=== PATIENT | male | born 1990 | race Caucasian/White ===

== ENCOUNTER 2016-11-14 14:44 | Emergency (ER) | payer BC ==
[~2016-11-14] VITALS: Ht 188 cm; Wt 68.9 kg
[2016-11-14 14:47] VITALS: TEMP 36.5; Ht 188 cm; Wt 68.9 kg
[2016-11-14] MEDS ORDERED: GELATIN SPONGE 12-7MM EXT ONE (15:15)
--- NOTE | 2016-11-14 15:27 | EMERGENCY ROOM VISIT NOTE ---
ED Visit Note First contact with patient: 14:56 CHIEF COMPLAINT: Finger laceration HISTORY OF PRESENT ILLNESS: This 25-year-old male patient presents to the emergency department approximately 30 minutes after cutting the left fifth finger while cleaning his gun. Patient states he pulled out the bolt of the gun , when it slipped, avulsing the anterior aspect of his left pinky finger. Patient states he cleaned the digit using peroxide and a washcloth, immediately sought care in the emergency department. The bleeding has stopped. Denies weakness or numbness of the finger. The patient has full range of motion of the fingers. The patient rates the pain as throbbing and 6/10. The patient denies any other injuries. The patient's tetanus shot is up to date. REVIEW OF SYSTEMS: A 6 system review of systems was completed with positives and pertinent negatives listed in the HPI. ALLERGIES: Morphine, pertussis MEDICATIONS: None PMH: None SOCIAL HISTORY: Patient lives locally with his girlfriend. 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 Patient denies tobacco or drug use currently. He did quit using chew tobacco 1 month ago, and states he does drink alcohol socially on occasion. PHYSICAL EXAM: Vital Signs: Reviewed Nurse's notes, vital signs stable. GENERAL : 25-year-old male, in no acute distress, well developed, well nourished. SKIN : There is a 0.5 cm avulsion on the distal anterior aspect of the left finger. The overlying skin is no longer present. There is no foreign material in the wound and it looks clean. There is minimal bleeding. No deep structures such as tendons, bones, or significant blood vessels are seen in the base of the wound. Extension and flexion of the finger is full and strong. Full range of motion of the wrist and other fingers. Capillary refill less than 2 seconds. Normal sensation to light and sharp touch. EMERGENCY DEPARTMENT COURSE: I examined the patient. The wound was copiously irrigated and cleansed utilizing sterile saline. Gelfoam was placed over the wound, and it was bandaged utilizing gauze and Coban. The patient was discharged home in good condition. DIAGNOSIS: Finger avulsion DIFFERENTIAL DIAGNOSIS: Laceration, de-gloving, cellulitis, and others were considered. DISCHARGE INSTRUCTIONS & TREATMENT: You have been treated in the Emergency Department today for your left 5th finger abrasion. Leave the GELFOAM and dressing in place for the next 48 hours. Keep the dressing clean and dry until time for removal. To remove the GELFOAM dressing, remove the overlying tape and then soak the wound in warm water until the piece of GELFOAM can be easily removed. Proper wound care is essential for adequate wound healing and infection prevention. You can shower and clean the wound with soap and water. Do not scour over the wound, pat dry with a towel. You can use an antibiotic ointment with a dressing/bandage over the wound after removal of gelfoam. After this time you may leave the wound dry and open to the air, however, you should keep it covered while working or shooting guns, or performing other activities which could cause further injury. Look for signs of infection of the wound including: increased pain, swelling, foul discharge, streaking, or increased temperature. If any of these are noticed you should return to the Emergency Department for further assessment and treatment. As with any laceration you may have received nerve damage to the surrounding tissues. This damage could be permanent. For pain control, you can use the following wdqv-wev-msshweu medicines (if >12 yo): - Regular strength (325mg/tab) Tylenol (acetaminophen) 2 tabs every 4-6 hours as needed. Do not exceed 12 tablets in a 24 hour period. Avoid taking more than 4 grams (4000 mg) of Tylenol per day. This includes any other sources of acetaminophen you may take on a regular basis. - Regular strength (200 mg/tab) Advil (ibuprofen) 1-2 tabs every 4-6 hours as needed. Do not exceed a dose of 3200 mg per day. Return to the emergency department if your symptoms worsen despite treatment course outlined above. Follow-up with her primary care provider in 2-3 days for recheck. Current/Historical Medications No Active Prescriptions or Reported Meds Allergies Coded Allergies: Dextromethorphan (Unverified Allergy, Unknown, UNKNOWN, 11/14/16) ALLERGY PASSED ON FROM [facility] Ethanol (Unverified Allergy, Unknown, UNKNOWN, 11/14/16) ALLERGY PASSED ON FROM [facility] Guaifenesin (Unverified Allergy, Unknown, UNKNOWN, 11/14/16) ALLERGY PASSED ON FROM [facility] Morphine (Unverified Allergy, Unknown, hives, 11/14/16) Vital Signs Date Time Temp Pulse Resp B/P (MAP) Pulse Ox O2 Delivery O2 Flow Rate FiO2 11/14/16 15:35 58 18 107/65 98 11/14/16 14:47 36.5 68 17 120/84 98 Room Air Departure Information Impression Primary Impression: Avulsion of skin of finger without complication Dispostion Home / Self-Care Condition GOOD Prescriptions No Active Prescriptions or Reported Meds Referrals No Doctor, Assigned (PCP) Patient Instructions ED Gelfoam Dressing, [facility] Additional Instructions You have been treated in the Emergency Department today for your left 5th finger abrasion. Leave the GELFOAM and dressing in place for the next 48 hours. Keep the dressing clean and dry until time for removal. To remove the GELFOAM dressing, remove the overlying tape and then soak the wound in warm water until the piece of GELFOAM can be easily removed. Proper wound care is essential for adequate wound healing and infection prevention. You can shower and clean the wound with soap and water. Do not scour over the wound, pat dry with a towel. You can use an antibiotic ointment with a dressing/bandage over the wound after removal of gelfoam. After this time you may leave the wound dry and open to the air, however, you should keep it covered while working or shooting guns, or performing other activities which could cause further injury. Look for signs of infection of the wound including: increased pain, swelling, foul discharge, streaking, or increased temperature. If any of these are noticed you should return to the Emergency Department for further assessment and treatment. As with any laceration you may have received nerve damage to the surrounding tissues. This damage could be permanent. For pain control, you can use the following hggb-zie-vmlnkny medicines (if >12 yo): - Regular strength (325mg/tab) Tylenol (acetaminophen) 2 tabs every 4-6 hours as needed. Do not exceed 12 tablets in a 24 hour period. Avoid taking more than 4 grams (4000 mg) of Tylenol per day. This includes any other sources of acetaminophen you may take on a regular basis. - Regular strength (200 mg/tab) Advil (ibuprofen) 1-2 tabs every 4-6 hours as needed. Do not exceed a dose of 3200 mg per day. Return to the emergency department if your symptoms worsen despite treatment course outlined above. Follow-up with her primary care provider in 2-3 days for recheck. Problem Qualifiers Primary Impression: Avulsion of skin of finger without complication Encounter type: initial encounter Qualified Codes: S61.209A - Unspecified open wound of unspecified finger without damage to nail, initial encounter
[2016-11-14 15:35] VITALS: BP 107/65; PULSE 58; O2SAT 98
== END 2016-11-14 15:36 | disposition home or self-care (01) ==
LOC: C.EDB 14:45 → C.EDD 15:36
DX: S61.217A Laceration without foreign body of left little finger without damage to nail, initial encounter (principal); W45.8XXA Other foreign body or object entering through skin, initial encounter; Y92.019 Unspecified place in single-family (private) house as the place of occurrence of the external cause; Y93.89 Activity, other specified

== ENCOUNTER 2017-01-03 23:19 | Emergency (ER) | payer BC ==
[~2017-01-03] VITALS: Ht 188 cm; Wt 67.3 kg
[2017-01-03 23:19] VITALS: TEMP 36.5; Ht 188 cm; Wt 67.3 kg
[2017-01-03] MEDS ORDERED: SODIUM CHLORIDE 0.9% 1000ML 2,000 ML IV STA (23:36)
[2017-01-03] MEDS ORDERED: ONDANSETRON INJ 2 MG/ML 2 ML VIAL IV STA (23:36)
[2017-01-03] MEDS ORDERED: KETOROLAC TROMETHAMINE 30 MG/ML VIAL IV STA (23:36)
[2017-01-03 23:46] LABS: BASO % 0.1 %; BASO ABS # 0.01 K/uL (0-0.2); COMPLETE YES; EOS % 0.1 %; HEMATOCRIT 48.4 % (42-52); IG% 0.4 %; LYMPH % 12.2 %; LYMPH ABS # 1.36 K/uL (1.2-3.4); MEAN CELL VOLUME 80.4 fL (80-100); MEAN CORPUSCULAR HEMOGLOBIN 30.1 pg (25-34); MEAN CORPUSCULAR HGB CONC 37.4 g/dl (32-36); MEAN PLATELET VOLUME 10.1 fL (7.4-10.4); MONO % 4.1 %; NEUT % 83.1 %; PLATELET COUNT 249 K/uL (130-400); RED BLOOD COUNT 6.02 M/uL (4.7-6.1); WHITE BLOOD COUNT 11.19 K/uL (4.8-10.8)
--- NOTE | 2017-01-03 23:47 | EMERGENCY ROOM VISIT NOTE ---
History Report prepared by Dunai: Jagdish Núñez Under the Supervision of: Dr. Pavithra Pelayo M.D. First contact with patient: 23:21 Chief Complaint: VOMITING Stated Complaint: nausea History of Present Illness The patient is a 26 year old male who presents to the Emergency Room with complaints of intermittent vomiting starting around 1100 this morning. The patient states that he was drinking alcohol last night, and he had six beers which is more than usual. He states that when he woke up this morning he threw up, and he states that he has not been able to keep any fluids or food down and states he has vomited 10 times. The patient states that he has not had any hematuria, diarrhea, chest pain, or shortness of breath. He states that his urine has been very dark, and he had a normal bowel movement. He states that he does not have any other medical problems. He additionally states that he has been having tingling in his hands, face, and feet. Source of History: patient Onset: 1100 Position: other (global) Quality: other (vomiting) Timing: intermittent Associated Symptoms: No chest pain, No SOB, No diarrhea, No urinary symptoms Note: Associated symptoms: Tingling in hands, face, and feet. Review of Systems See HPI for pertinent positives & negatives. A total of 10 systems reviewed and were otherwise negative. Past Medical & Surgical Surgical Problems: (1) History of tonsillectomy Family History Hypertension Social History Smoking Status: Never Smoker Alcohol Use: occasionally Marital Status: single Housing Status: lives alone Occupation Status: employed Current/Historical Medications Scheduled PRN Ibuprofen Tab (Advil), 200-600 MG PO Q4H PRN for Pain Allergies Coded Allergies: Dextromethorphan (Verified Allergy, Unknown, BROTHER HAD ANAPHYLAXIS REACTION, 01/03/17) Ethanol (Verified Allergy, Unknown, BROTHER HAD ANAPHYLAXIS REACTION, 01/03) Guaifenesin (Verified Allergy, Unknown, BROTHER HAD ANAPHYLAXIS REACTION, 01/03/17) Morphine (Verified Allergy, Unknown, hives, 01/03/17) Physical Exam Vital Signs Date Time Temp Pulse Resp B/P (MAP) Pulse Ox O2 Delivery O2 Flow Rate FiO2 01/04/17 03:20 75 14 127/76 98 01/04/17 02:15 105/70 01/04/17 01:06 76 14 95 01/04/17 01:01 116/60 01/04/17 00:49 61 13 100 01/04/17 00:46 118/77 01/04/17 00:44 111/65 01/04/17 00:44 72 18 111/65 95 Room Air 01/04/17 00:19 60 99 01/04/17 00:15 66 01/03/17 23:22 134/85 01/03/17 23:19 36.5 83 20 134/85 100 Room Air Physical Exam Vital signs reviewed. General: Well-appearing male, in no significant distress. HEENT: No scleral icterus, PERRLA, neck supple. Atraumatic. Cardiovascular: Regular rate and rhythm, no extra sounds. Pulmonary: Clear to auscultation bilaterally, normal work of breathing. Abdomen: Soft, nontender, nondistended, positive bowel sounds. Musculoskeletal: Atraumatic, no peripheral edema. Neurologic: Patient awake alert and oriented x 3, full strength in all 4 extremities. Cranial nerves 2 through 12 grossly intact. Skin: Warm, dry, no rash Medical Decision & Procedures ER Provider Diagnostic Interpretation: Radiology results as stated below per my review and radiologist interpretation: US RUQ: Unremarkable study. Radiologist: Claudia King MD Laboratory Results 01/03/17 23:30 Red Blood Count 6.02, Mean Corpuscular Volume 80.4, Mean Corpuscular Hemoglobin 30.1, Mean Corpuscular Hemoglobin Concent 37.4, Mean Platelet Volume 10.1, Neutrophils (%) (Auto) 83.1, Lymphocytes (%) (Auto) 12.2, Monocytes (%) (Auto) 4.1, Eosinophils (%) (Auto) 0.1, Basophils (%) (Auto) 0.1, Neutrophils # (Auto) 9.30, Lymphocytes # (Auto) 1.36, Monocytes # (Auto) 0.46, Eosinophils # (Auto) 0.01, Basophils # (Auto) 0.01 01/03/17 23:30 Test 01/03/17 23:30 01/04/17 02:13 White Blood Count 11.19 K/uL (4.8-10.8) Red Blood Count 6.02 M/uL (4.7-6.1) Hemoglobin 18.1 g/dL (14.0-18.0) Hematocrit 48.4 % (42-52) Mean Corpuscular Volume 80.4 fL (80-100) Mean Corpuscular Hemoglobin 30.1 pg (25-34) Mean Corpuscular Hemoglobin Concent 37.4 g/dl (32-36) Platelet Count 249 K/uL (130-400) Mean Platelet Volume 10.1 fL (7.4-10.4) Neutrophils (%) (Auto) 83.1 % Lymphocytes (%) (Auto) 12.2 % Monocytes (%) (Auto) 4.1 % Eosinophils (%) (Auto) 0.1 % Basophils (%) (Auto) 0.1 % Neutrophils # (Auto) 9.30 K/uL (1.4-6.5) Lymphocytes # (Auto) 1.36 K/uL (1.2-3.4) Monocytes # (Auto) 0.46 K/uL (0.11-0.59) Eosinophils # (Auto) 0.01 K/uL (0-0.5) Basophils # (Auto) 0.01 K/uL (0-0.2) RDW Standard Deviation 34.7 fL (36.4-46.3) RDW Coefficient of Variation 12.0 % (11.5-14.5) Immature Granulocyte % (Auto) 0.4 % Immature Granulocyte # (Auto) 0.05 K/uL (0.00-0.02) Anion Gap 11.0 mmol/L (3-11) Est Creatinine Clear Calc Drug Dose 88.8 ml/min Estimated GFR () 96.1 Estimated GFR (Non- 83.0 BUN/Creatinine Ratio 9.9 (10-20) Calcium Level 10.1 mg/dl (8.5-10.1) Total Bilirubin 1.0 mg/dl (0.2-1) Direct Bilirubin 0.2 mg/dl (0-0.2) Aspartate Amino Transf (AST/SGOT) 76 U/L (15-37) Alanine Aminotransferase (ALT/SGPT) 212 U/L (12-78) Alkaline Phosphatase 73 U/L (45-117) Total Protein 8.4 gm/dl (6.4-8.2) Albumin 4.9 gm/dl (3.4-5.0) Lipase 102 U/L (73-393) Urine Color DK YELLOW Urine Appearance CLEAR (CLEAR) Urine pH >= 9.0 (4.5-7.5) Urine Specific [place] 1.027 (1.000-1.030) Urine Protein NEG (NEG) Urine Glucose (UA) NEG (NEG) Urine Ketones 1+ (NEG) Urine Occult Blood NEG (NEG) Urine Nitrite NEG (NEG) Urine Bilirubin NEG (NEG) Urine Urobilinogen NEG (NEG) Urine Leukocyte Esterase TRACE (NEG) Urine WBC (Auto) 1-5 /hpf (0-5) Urine RBC (Auto) 0-4 /hpf (0-4) Urine Hyaline Casts (Auto) 0 /lpf (0-5) Urine Epithelial Cells (Auto) >30 /lpf (0-5) Urine Bacteria (Auto) NEG (NEG) Urine Renal Epithelial Cells /lpf (0-5) Urine Mucus PRESENT (NONE PRSENT) Laboratory results per my review. Medications Administered Medications (Trade) Dose Ordered Sig/Amanda Route Start Time Stop Time Status Last Admin Dose Admin Sodium Chloride 2,000 ml @ 999 mls/hr Q2H1M STAT IV 01/03/17 23:36 01/04/17 01:36 DC 01/03/17 23:52 999 MLS/HR Ketorolac Tromethamine (Toradol Inj) 30 mg NOW STAT IV 01/03/17 23:36 01/03/17 23:38 DC 01/03/17 23:53 30 MG Ondansetron HCl (Zofran Inj) 4 mg NOW STAT IV 01/03/17 23:36 01/03/17 23:38 DC 01/03/17 23:53 4 MG Ondansetron HCl (ZOFRAN ODT 4MG Home Pack) 1 homepack UD ONCE PO 01/04/17 03:15 01/04/17 03:16 DC 01/04/17 03:18 1 HOMEPACK ED Course 2330: Past medical records reviewed. The patient was evaluated in room B4. A complete history and physical examination was performed. 2336: Zofran Inj 4mg IV, Toradol Inj 30mg IV, Sodium Chloride 2000 ml @ 999 mls/ hr IV 0228: I reevaluated the patient, and he states that he is feeling well. 0310: Upon reevaluation, the patient appeared to have improvement of his symptoms. I discussed findings with him. He verbalized agreement of the treatment plan. He was discharged home. 0315: Zofran ODT 4mg 1 Home Pack PO Medical Decision Differential diagnosis: Etiologies such as gastroenteritis, food borne illness, infections, appendicitis , diverticulitis, inflammatory bowel disease, obstruction, GI bleed, biliary pathology, as well as others were entertained. This patient was evaluated and appeared to be in no significant distress. IV access was obtained and laboratory work was drawn. The patient was placed on the clinical research monitor and found to be in a normal sinus rhythm. He was hydrated with normal saline solution, given IV Zofran and Toradol. Laboratory work reveals mildly elevated liver enzymes, likely consistent with his vomiting. Ultrasound of right upper quadrant was performed and is unremarkable. The patient was feeling much improved. He was no longer vomiting or nauseated. He was discharged with a Zofran home pack, asked to drink plenty clear fluids and to advance his diet slowly as tolerated. He'll follow-up with his physician for reevaluation this week if symptoms persist and return to the ER for worsening of symptoms or any medical concerns. Medication Reconcilliation Current Medication List: was personally reviewed by me Blood Pressure Screening Patient's blood pressure: Normal blood pressure Impression Primary Impression: Vomiting Additional Impression: Elevated liver enzymes Scribe Attestation The scribe's documentation has been prepared under my direction and personally reviewed by me in its entirety. I confirm that the note above accurately reflects all work, treatment, procedures, and medical decision making performed by me. Departure Information Dispostion Home / Self-Care Referrals No Doctor, Assigned (PCP) Forms HOME CARE DOCUMENTATION FORM, IMPORTANT VISIT INFORMATION Patient Instructions My [facility] Additional Instructions Diagnosis: Vomiting Drink plenty of clear fluids. Zofran 4 mg ODT every 6 hours as needed for nausea. Avoid alcohol in excess. Avoid aspirin, Aleve and ibuprofen. Use Pepcid 20 mg twice daily as needed for gastritis. Follow-up with your physician for reevaluation this week. Return to the ER for worsening of symptoms or any medical concerns. Problem Qualifiers
[2017-01-03] MEDS ORDERED: IBUP-103 PO (23:58)
[2017-01-04 00:24] LABS: BUN/CREATININE RATIO 9.9 (10-20); CALCIUM 10.1 mg/dl (8.5-10.1); CREATININE 1.2 mg/dl (0.60-1.40); POTASSIUM 4.1 mmol/L (3.5-5.1)
[2017-01-04 02:25] LABS: URINE APPEARANCE CLEAR (CLEAR); URINE BILIRUBIN NEG (NEG); URINE COLOR DK YELLOW; URINE EPITHELIAL CELL AUTO >30 /lpf (0-5); URINE NITRITE NEG (NEG); URINE PH >= 9.0 (4.5-7.5); URINE SPECIFIC GRAVITY 1.027 (1.000-1.030); UROBILINOGEN NEG (NEG); ZZUR CULT IF INDIC CLEAN CATCH NO
[2017-01-04 02:36] LABS: MANUAL MICROSCOPIC REQUIRED? NO; REVIEW REQ? YES; SULFASALICYLIC ACID NEG (NEG)
[2017-01-04 03:05] LABS: URINE MUCUS PRESENT (NONE PRSENT)
[2017-01-04] MEDS ORDERED: ONDANSETRON HOME PACK 4MG OD TAB PO ONE (03:15)
[2017-01-04 03:20] VITALS: BP 127/76; PULSE 75; O2SAT 98
--- NOTE | 2017-01-04 06:39 | DIAGNOSTIC IMAGING REPORT ---
GALLBLADDER-ABD LIMITED CLINICAL HISTORY: elevated liver enzymes nausea. Pain. TECHNIQUE: Ultrasound COMPARISON STUDY: None FINDINGS: Normal study IMPRESSION: Normal study The above report was generated using voice recognition software. It may contain grammatical, syntax or spelling errors. Electronically signed by: Rm Cotter M.D. 01/04/2017 6:38 AM Dictated Date/Time: 01/04/2017 6:37 AM
== END 2017-01-04 03:20 | disposition home or self-care (01) ==
LOC: EDBD 23:19 → C.EDB 23:20
DX: R11.10 Vomiting, unspecified (principal); R74.8 Abnormal levels of other serum enzymes; Z98.890 Other specified postprocedural states; Z88.5 Allergy status to narcotic agent; Z88.8 Allergy status to other drugs, medicaments and biological substances; Z82.49 Family history of ischemic heart disease and other diseases of the circulatory system

== ENCOUNTER 2017-07-01 14:51 | Emergency (ER) | payer BC ==
[~2017-07-01] VITALS: Ht 185.4 cm; Wt 72.0 kg
[~2017-07-01 14:51] MED LIST: IBUP-103 PO
[2017-07-01 14:52] VITALS: Ht 185.4 cm; Wt 72.0 kg
[2017-07-01] MEDS ORDERED: ONDANSETRON INJ 2 MG/ML 2 ML VIAL IV STA (16:07)
[2017-07-01] MEDS ORDERED: SODIUM CHLORIDE 0.9% 1000ML 1,000 ML IV STA (16:07)
[2017-07-01 16:37] LABS: BASO % 0.2 %; BASO ABS # 0.02 K/uL (0-0.2); EOS % 0.1 %; EOS ABS # 0.01 K/uL (0-0.5); HEMATOCRIT 44.4 % (42-52); IG# 0.03 K/uL (0.00-0.02); LYMPH % 5.9 %; LYMPH ABS # 0.77 K/uL (1.2-3.4); MEAN CORPUSCULAR HEMOGLOBIN 29.2 pg (25-34); MEAN PLATELET VOLUME 10.3 fL (7.4-10.4); MONO % 5.3 %; NEUT % 88.3 %; NEUT ABS # 11.56 K/uL (1.4-6.5); PLATELET COUNT 166 K/uL (130-400); RED CELL DISTRIBUTION WIDTH CV 12.2 % (11.5-14.5); RED CELL DISTRIBUTION WIDTH SD 35.1 fL (36.4-46.3); WHITE BLOOD COUNT 13.09 K/uL (4.8-10.8)
[2017-07-01 16:59] LABS: ALBUMIN 4.4 gm/dl (3.4-5.0); CALCIUM 9.3 mg/dl (8.5-10.1); CREATININE 0.95 mg/dl (0.60-1.40); POTASSIUM 3.7 mmol/L (3.5-5.1)
[2017-07-01 17:01] LABS: TOTAL PROTEIN 8.2 gm/dl (6.4-8.2)
--- NOTE | 2017-07-01 17:11 | DIAGNOSTIC IMAGING REPORT ---
ABDOMEN 2VIEW W/PA CHEST RTN CLINICAL HISTORY: 26 years-old Male presenting with abd pain, congestion, headache, bodyaches, vomiting. TECHNIQUE: PA view of the chest and supine and upright views of the abdomen were obtained. COMPARISON: None. FINDINGS: Cardiomediastinal silhouette normal. Lungs and pleural spaces clear. Marked stool burden in the cecum there is moderate stool burden throughout the remaining colon. No bowel obstruction. No gross pneumoperitoneum. Allowing for bowel gas and stool, no calcifications to suggest nephrolithiasis. Osseous structures normal. IMPRESSION: 1. No acute cardiopulmonary disease. 2. Findings suggest constipation. No bowel obstruction or free air. Electronically signed by: Josef Varner M.D. 07/01/2017 5:10 PM Dictated Date/Time: 07/01/2017 5:09 PM
[2017-07-01 17:14] VITALS: BP 111/68; PULSE 67; TEMP 36.7; O2SAT 100
[2017-07-01] MEDS ORDERED: OSEL75CA23 PO (17:17)
[2017-07-01] MEDS ORDERED: BENZ-54 PO (17:17)
[2017-07-01 17:45] LABS: INFLUENZA A PCR Neg for Influ A (NEG); INFLUENZA B PCR Neg for Influ B (NEG)
[2017-07-01] MEDS ORDERED: ONDA4TAB46 PO (18:10)
--- NOTE | 2017-07-01 20:47 | EMERGENCY ROOM VISIT NOTE ---
History Report prepared by Dunia: Jagdish Núñez Under the Supervision of: Dr. Karson Singh D.O. First contact with patient: 15:59 Chief Complaint: FLU LIKE SX Stated Complaint: CONGESTION,HEADACHE,BODY ACHES,VOMITING History of Present Illness The patient is a 26 year old male who presents to the Emergency Room with complaints of persistent flu like symptoms for the past 24 hours. The patient states that last night he had a headache which went away with ibuprofen. He reports that this morning he had body aches, fever, congestion, sinus pain, vomiting, sore throat, and a productive yellow cough. He notes that he went to [facility] this morning, and he was given Tamiflu, and he started vomiting 2 hours after taking it at around 1030. He vomited three times. The patient additionally has taken Tessalon Perles. He notes that he was recently visiting his family, and his father was getting over the flu as well. The patient notes that he has some crampy abdominal pain which precedes vomiting. He has been having some burning with urination this morning. He states that he has never taken Tamiflu. The patient states that he has no other medical problems, and he still has his gall bladder and appendix. Pt denies headache, change in vision, chest pain, shortness of breath, diarrhea, rash, testicular pain, pain with urination, and melena. Source of History: patient Onset: 24 hours ago Position: other (global) Quality: other (flu like symptoms) Timing: other (persistent) Associated Symptoms: + fevers, + sorethroat, + cough, + vomiting, + abdominal pain, No rash Note: Associated symptoms: Congestion, sinus pain, and body aches. Review of Systems See HPI for pertinent positives & negatives. A total of 10 systems reviewed and were otherwise negative. Past Medical & Surgical Surgical Problems: (1) History of tonsillectomy Family History Hypertension Social History Smoking Status: Never Smoker Alcohol Use: occasionally Marital Status: single Housing Status: lives alone Occupation Status: employed Current/Historical Medications Scheduled Benzonatate (Tessalon Perles), 100 MG PO BID Oseltamivir Phosphate (Tamiflu), 75 MG PO BID Scheduled PRN Ondansetron Hcl (Zofran), 4 MG PO TID PRN for Nausea Allergies Coded Allergies: Dextromethorphan (Verified Allergy, Unknown, BROTHER HAD ANAPHYLAXIS REACTION, 07/01/17) Ethanol (Verified Allergy, Unknown, BROTHER HAD ANAPHYLAXIS REACTION, ) Guaifenesin (Verified Allergy, Unknown, BROTHER HAD ANAPHYLAXIS REACTION, 07/01/17) Morphine (Verified Allergy, Unknown, hives, 07/01/17) Physical Exam Vital Signs Date Time Temp Pulse Resp B/P (MAP) Pulse Ox O2 Delivery O2 Flow Rate FiO2 07/01/17 17:14 36.7 67 18 111/68 100 Room Air 07/01/17 14:52 36.9 90 16 124/59 96 Physical Exam GENERAL: Sitting up in bed, alert, well appearing, well nourished, no distress, non-toxic, dry non-productive cough EYE EXAM: normal conjunctiva. OROPHARYNX: no exudate, no erythema, lips, buccal mucosa, and tongue normal and mucous membranes are moist NECK: supple, no nuchal rigidity, no adenopathy, non-tender LUNGS: Clear to auscultation. Normal chest wall mechanics HEART: no murmurs, S1 normal and S2 normal ABDOMEN: abdomen soft, non-tender, normo-active bowel sounds, no masses, no rebound or guarding. BACK: Back is symmetrical on inspection and there is no deformity, no midline tenderness, no CVA tenderness. SKIN: no rashes and no bruising UPPER EXTREMITIES: upper extremities are grossly normal. LOWER EXTREMITIES: Calves are equal bilaterally. No pitting edema. NEURO EXAM: Normal sensorium, cranial nerves II-XII grossly intact, normal speech, no gross weakness of arms, no gross weakness of legs. Medical Decision & Procedures ER Provider Diagnostic Interpretation: Radiology results as stated below per my review and the radiologist's interpretation: ABDOMEN 2VIEW W/PA CHEST RTN CLINICAL HISTORY: 26 years-old Male presenting with abd pain, congestion, headache, bodyaches, vomiting. TECHNIQUE: PA view of the chest and supine and upright views of the abdomen were obtained. COMPARISON: None. FINDINGS: Cardiomediastinal silhouette normal. Lungs and pleural spaces clear. Marked stool burden in the cecum there is moderate stool burden throughout the remaining colon. No bowel obstruction. No gross pneumoperitoneum. Allowing for bowel gas and stool, no calcifications to suggest nephrolithiasis. Osseous structures normal. IMPRESSION: 1. No acute cardiopulmonary disease. 2. Findings suggest constipation. No bowel obstruction or free air. Electronically signed by: Josef Varner M.D. 07/01/2017 5:10 PM Dictated Date/Time: 07/01/2017 5:09 PM Laboratory Results 07/01/17 16:15 Red Blood Count 5.48, Mean Corpuscular Volume 81.0, Mean Corpuscular Hemoglobin 29.2, Mean Corpuscular Hemoglobin Concent 36.0, Mean Platelet Volume 10.3, Neutrophils (%) (Auto) 88.3, Lymphocytes (%) (Auto) 5.9, Monocytes (%) (Auto) 5.3, Eosinophils (%) (Auto) 0.1, Basophils (%) (Auto) 0.2, Neutrophils # (Auto) 11.56, Lymphocytes # (Auto) 0.77, Monocytes # (Auto) 0.70, Eosinophils # (Auto) 0.01, Basophils # (Auto) 0.02 07/01/17 16:15 Test 07/01/17 16:15 07/01/17 16:30 07/01/17 17:00 White Blood Count 13.09 K/uL (4.8-10.8) Red Blood Count 5.48 M/uL (4.7-6.1) Hemoglobin 16.0 g/dL (14.0-18.0) Hematocrit 44.4 % (42-52) Mean Corpuscular Volume 81.0 fL (80-100) Mean Corpuscular Hemoglobin 29.2 pg (25-34) Mean Corpuscular Hemoglobin Concent 36.0 g/dl (32-36) Platelet Count 166 K/uL (130-400) Mean Platelet Volume 10.3 fL (7.4-10.4) Neutrophils (%) (Auto) 88.3 % Lymphocytes (%) (Auto) 5.9 % Monocytes (%) (Auto) 5.3 % Eosinophils (%) (Auto) 0.1 % Basophils (%) (Auto) 0.2 % Neutrophils # (Auto) 11.56 K/uL (1.4-6.5) Lymphocytes # (Auto) 0.77 K/uL (1.2-3.4) Monocytes # (Auto) 0.70 K/uL (0.11-0.59) Eosinophils # (Auto) 0.01 K/uL (0-0.5) Basophils # (Auto) 0.02 K/uL (0-0.2) RDW Standard Deviation 35.1 fL (36.4-46.3) RDW Coefficient of Variation 12.2 % (11.5-14.5) Immature Granulocyte % (Auto) 0.2 % Immature Granulocyte # (Auto) 0.03 K/uL (0.00-0.02) Anion Gap 5.0 mmol/L (3-11) Est Creatinine Clear Calc Drug Dose 120.0 ml/min Estimated GFR () 127.5 Estimated GFR (Non- 110.0 BUN/Creatinine Ratio 15.2 (10-20) Calcium Level 9.3 mg/dl (8.5-10.1) Total Bilirubin 1.0 mg/dl (0.2-1) Direct Bilirubin 0.2 mg/dl (0-0.2) Aspartate Amino Transf (AST/SGOT) 17 U/L (15-37) Alanine Aminotransferase (ALT/SGPT) 28 U/L (12-78) Alkaline Phosphatase 62 U/L (45-117) Total Protein 8.2 gm/dl (6.4-8.2) Albumin 4.4 gm/dl (3.4-5.0) Lipase 136 U/L (73-393) Influenza Type A (RT-PCR) Neg for Influ A (NEG) Influenza Type B (RT-PCR) Neg for Influ B (NEG) Urine Color YELLOW Urine Appearance CLEAR (CLEAR) Urine pH 6.0 (4.5-7.5) Urine Specific [place] 1.026 (1.000-1.030) Urine Protein NEG (NEG) Urine Glucose (UA) NEG (NEG) Urine Ketones 1+ (NEG) Urine Occult Blood NEG (NEG) Urine Nitrite NEG (NEG) Urine Bilirubin NEG (NEG) Urine Urobilinogen NEG (NEG) Urine Leukocyte Esterase NEG (NEG) Urine WBC (Auto) 1-5 /hpf (0-5) Urine RBC (Auto) 0-4 /hpf (0-4) Urine Hyaline Casts (Auto) 1-5 /lpf (0-5) Urine Epithelial Cells (Auto) 0-5 /lpf (0-5) Urine Bacteria (Auto) NEG (NEG) Laboratory results per my review. Medications Administered Medications (Trade) Dose Ordered Sig/Amanda Route Start Time Stop Time Status Last Admin Dose Admin Sodium Chloride 1,000 ml @ 999 mls/hr Q1H1M STAT IV 07/01/17 16:07 07/01/17 17:07 DC 07/01/17 16:29 999 MLS/HR Ondansetron HCl (Zofran Inj) 4 mg NOW STAT IV 07/01/17 16:07 07/01/17 16:08 DC 07/01/17 16:27 4 MG ED Course ED COURSE: Vital signs were reviewed and showed normal vitals The patients medical record was reviewed The above diagnostic studies were performed and reviewed. ED treatments and interventions as stated above. 1559: The patient was evaluated in room B2. A complete history and physical examination was performed. 1607: Zofran 4mg IV, Sodium Chloride 1000 ml @ 999 mls/hr IV 1734: I reevaluated the patient, and he is doing well. 1809: Upon reevaluation, the patient is feeling better.I discussed my findings with the patient and he understands and agrees with the treatment plan. Based on the patients age, coexisting illnesses, exam and lab findings the decision to treat as an outpatient was made. The patient remained stable while under my care. The patient appeared well at the time of discharge. Medical Decision Differential diagnoses includes but is not limited to pneumonia, bronchitis, COPD/Asthma exacerbation, pneumothorax, pulmonary embolism, congestive heart failure, acute coronary syndrome Patient is a 26-year-old male who presents to ER for upper esterase symptoms associated with some nausea and vomiting. His dad was just recently diagnosed with influenza here lab. Vomiting started after taking Tamiflu/about 2 hours. CBC shows a mild leukocytosis of 13,000 which I favor secondary to vomiting. BMP all LFTs, bilirubin lipase is normal. UA was negative. Influenza was negative. Obstruction series unremarkable along with chest x-ray. She was given fluids and Zofran and felt significant better. He has no abdominal pain with the exception of just prior to vomiting. I do favor although a negative influenza that he likely has a viral URI in combination with gastritis versus a reaction to Tamiflu causing the vomiting. I instructed him not to take Tamiflu any longer. He'll take Tylenol or Motrin as needed along with Zofran for nausea vomiting. He was discharged feeling significantly better to follow-up with PCP as an outpatient. Discussed with Pt concerning signs and symptoms to watch out for. Pt was instructed to follow up with their PCP and discussed with the patient their option to return to the ED at anytime for persistent or worsening symptoms. The appropriate anticipatory guidance and out-patient management, including indications for return to the emergency department, were explained at length to the patient and understood. Medication Reconcilliation Current Medication List: was personally reviewed by me Blood Pressure Screening Patient's blood pressure: Normal blood pressure Impression Primary Impression: Upper respiratory infection Additional Impression: Vomiting Scribe Attestation The scribe's documentation has been prepared under my direction and personally reviewed by me in its entirety. I confirm that the note above accurately reflects all work, treatment, procedures, and medical decision making performed by me. Departure Information Dispostion Home / Self-Care Prescriptions Ondansetron Hcl (ZOFRAN) 4 Mg Tab 4 MG PO TID Y for Nausea, #30 TAB Prov: Karson Singh, DO 07/01/17 Referrals No Doctor, Assigned (PCP) Forms HOME CARE DOCUMENTATION FORM, IMPORTANT VISIT INFORMATION Patient Instructions ED Nausea Vomiting, ED URI Viral, [facility] Additional Instructions Please follow up with your primary care doctor with in the next 24 hours. Any worsening of your symptoms, please return to the ED immediately. This includes any fevers greater than 100.4, worsening pain, chest pain, shortness breath, persistent nausea, vomiting, unable to eat or drink, or any other concerning signs or symptoms from your standpoint. Please take Tylenol or Motrin as needed for myalgias. Please take Zofran as needed for nausea/vomiting. Problem Qualifiers Primary Impression: Upper respiratory infection URI type: unspecified URI Qualified Codes: J06.9 - Acute upper respiratory infection, unspecified Additional Impression: Vomiting Vomiting type: unspecified Vomiting Intractability: non-intractable Nausea presence: with nausea Qualified Codes: R11.2 - Nausea with vomiting, unspecified
== END 2017-07-01 18:31 | disposition home or self-care (01) ==
LOC: C.EDB 14:52
DX: J06.9 Acute upper respiratory infection, unspecified (principal); R11.2 Nausea with vomiting, unspecified; Z90.89 Acquired absence of other organs; Z82.49 Family history of ischemic heart disease and other diseases of the circulatory system